=== PATIENT | male | born 1985 | race Caucasian/White ===

== ENCOUNTER 2023-08-04 09:05 | Outpatient (CLI) | payer OTHER, SELFPAY | END 2023-08-04 09:06 | disposition home or self-care (01) | PROVIDERS: PCP Family Medicine; Visit Provider Family Medicine | DX: Z00.00 Encounter for general adult medical examination without abnormal findings (principal); R73.01 Impaired fasting glucose; R07.9 Chest pain, unspecified; Z13.6 Encounter for screening for cardiovascular disorders | CPT/HCPCS: 80053; 80061 ==

== ENCOUNTER 2023-08-15 10:26 | Outpatient (CLI) | payer OTHER, SELFPAY ==
--- NOTE | 2023-08-15 11:34 | W.ANESCHARGE ---
Anesthesia Charges Start Date/Time Anesthesia Start Date: 08/15/23 Anesthesia Start Time: 11:15 Stop Date/Time Anesthesia Stop Date: 08/15/23 Anesthesia Stop Time: 11:33
--- NOTE | 2023-08-15 11:42 | W.ANESCHARGE ---
Anesthesia Charges Start Date/Time Anesthesia Start Date: 08/15/23 Anesthesia Start Time: 11:15 Stop Date/Time Anesthesia Stop Date: 08/15/23 Anesthesia Stop Time: 11:33
== END 2023-08-15 10:27 | disposition home or self-care (01) ==
LOC: OP CLINIC 10:26
PROVIDERS: PCP Family Medicine; Visit Provider Surgery
DX: K21.9 Gastro-esophageal reflux disease without esophagitis (principal)
CPT/HCPCS: 43239; 731; 88305; J2704; J3490

== ENCOUNTER 2024-11-08 08:18 | Outpatient (CLI) | payer OTHER, SELFPAY | END 2024-11-08 08:19 | disposition home or self-care (01) | LOC: NFLDREF 08:21 | PROVIDERS: PCP Family Medicine; Visit Provider Family Medicine | DX: R73.01 Impaired fasting glucose (principal); R17 Unspecified jaundice | CPT/HCPCS: 80053 ==

== ENCOUNTER 2025-03-28 08:45 | Outpatient (CLI) | payer OTHER, SELFPAY | END 2025-03-28 08:46 | disposition home or self-care (01) | LOC: NFLDREF 04-12 00:29 | PROVIDERS: PCP Family Medicine; Referring Provider Family Medicine; Visit Provider Obstetrics & Gynecology | DX: Z31.69 Encounter for other general counseling and advice on procreation (principal) | CPT/HCPCS: 89322 ==

== ENCOUNTER 2025-04-26 09:29 | Outpatient (CLI) | payer OTHER, SELFPAY ==
--- NOTE | 2025-04-26 10:00 | CRLHL7_ITS ---
For Patients: As a result of the Century Cures Act, medical imaging exams and procedure reports are released immediately into your electronic medical record. You may view this report before your referring provider. If you have questions, please contact your health care provider. Indication: Posterior neck lump, increasingly painful. Technique: Contrast-enhanced CT of the neck with multiplanar reconstruction utilizing 101 cc Isovue 370 iodinated intravenous contrast. Comparison: None available. Findings: A 1.4 x 2.4 x 1.9 cm fat attenuating lesion is noted within the posterior subcutaneous soft tissues at the C5 level (series 3 image 39). The lesion contains few internal septations and there are mild surrounding inflammatory changes. No suspicious mucosal based mass or enhancement. No pathologically enlarged cervical lymph nodes. Normal parotid and submandibular glands. Unremarkable thyroid. Clear lung apices. No aggressive osseous lesion. The orbits and imaged intracranial structures are within normal limits. Impression: 1. 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 2. Mild surrounding inflammatory changes which may represent superimposed infection. Please note that all CT scans at this facility use dose modulation, iterative reconstruction, and/or weight-based dosing when appropriate to reduce radiation dose to as low as reasonably achievable. Dictated by Jose Rock MD @ 04/29/2025 9:40:28 AM (Electronically Signed)
== END 2025-04-26 09:30 | disposition home or self-care (01) ==
LOC: CT 09:29
PROVIDERS: PCP Family Medicine; Visit Provider Family Medicine
DX: R22.1 Localized swelling, mass and lump, neck (principal)
CPT/HCPCS: 70491; Q9967